=== PATIENT | male | born 1960 | race Caucasian/White ===

== ENCOUNTER 2023-08-06 15:10 | Inpatient (IN) | payer MEDICARE, OTHER ==
[~2023-08-06] VITALS: Ht 215.9 cm; Wt 83.5 kg
[2023-08-06 16:06] LABS: BASOPHILS # (AUTO) 0.2 K/UL (0.0-0.2); EOSINOPHILS # (AUTO) 0.5 K/uL (0.0-0.7); EOSINOPHILS % (AUTO) 7.2 % (0.0-7.0); HEMATOCRIT 36.2 % (36.7-47.1); HEMOGLOBIN 12.3 g/dL (12.5-16.3); LYMPHOCYTES # (AUTO) 1.4 K/uL (0.8-4.8); LYMPHOCYTES % (AUTO) 19.3 % (20.5-51.5); MEAN CORPUSCULAR HEMOGLOBIN 29.9 uug (23.8-33.4); MEAN CORPUSCULAR HGB CONC 34 g/dL (32.5-36.3); MEAN CORPUSCULAR VOLUME 88.2 fL (73.0-96.2); MONOCYTES # (AUTO) 0.6 K/uL (0.1-1.30); MONOCYTES % (AUTO) 7.9 % (0.0-11.0); NEUTROPHILS # (AUTO) 4.5 K/uL (1.8-8.9); NEUTROPHILS % (AUTO) 62.6 % (38.5-71.5); PLATELET COUNT (AUTO) 233 K/uL (152-348); RED BLOOD CELL COUNT(AUTO) 4.11 MIL/uL (4.06-5.63); RED CELL DISTRIBUTION WIDTH 14.1 % (12.1-16.2); WHITE BLOOD COUNT (AUTO) 7.2 K/uL (3.6-10.2)
[2023-08-06 16:07] LABS: DIFFERENTIAL COMMENT 1
[2023-08-06 16:23] LABS: CALCIUM 9.1 mg/dL (8.5-10.1); CARBON DIOXIDE 27 mmol/L (21-32); CHLORIDE 106 mmol/L (98-107); CREATININE 1.2 mg/dL (0.6-1.3); GLUCOSE 122 mg/dL (74-106); POTASSIUM 3.9 mmol/L (3.5-5.1); SODIUM SERUM 139 mmol/L (136-145); UREA NITROGEN, BLOOD 20 mg/dL (7-18)
[2023-08-06 16:31] LABS: ALANINE AMINOTRANSFERASE 11 U/L (16-63); ALBUMIN 3.5 g/dL (3.4-5.0); ALKALINE PHOSPHATASE 59 U/L (50-136); ASPARTATE AMINOTRANSFERASE 5 U/L (15-37); BILIRUBIN,DIRECT 0.1 mg/dL (0.0-0.2); BILIRUBIN,TOTAL 0.3 mg/dL (0.2-1.0); TOTAL PROTEIN, SERUM 6.6 g/dL (6.4-8.2)
[2023-08-06 16:33] LABS: AMMONIA < 10 umol/L (11-32); ETHANOL < 3 MG/DL (0-10)
[2023-08-06 16:36] LABS: THYROID STIMULATING HORMONE 1.259 mIU/mL (0.358-3.740)
[2023-08-06 16:44] LABS: ACETAMINOPHEN < 10.0 ug/mL (10-30)
[2023-08-06 17:10] LABS: *BILIRUBIN,URIN NEGATIVE (NEGATIVE); *BLOOD, URINE TRACE (NEGATIVE); *CLARITY,URINE CLEAR (CLEAR); *COLOR,URINE YELLOW (YELLOW); *KETONES,URINE NEGATIVE (NEGATIVE); *PROTEIN,URINE NEGATIVE (NEGATIVE); *UROBILINOGEN,URINE 0.2 E.U./dl (NORMAL); LEUKOCYTE ESTERASE ,URINE NEGATIVE (NEGATIVE); NITRITE, URINE NEGATIVE (NEGATIVE); UGLUCOSE NEGATIVE (NEGATIVE)
[2023-08-06 17:12] LABS: *AMPHETAMINE, URINE NEGATIVE (NEGATIVE); *BARBITURATE, URINE NEGATIVE (NEGATIVE); *BENZODIAZEPINE, URINE NEGATIVE (NEGATIVE); *CANNABINOID, URINE NEGATIVE (NEGATIVE); *COCCAINE, URINE NEGATIVE (NEGATIVE); *OPIATE, URINE NEGATIVE (NEGATIVE); *PHENCYCLIDINE SCREEN,URINE NEGATIVE (NEGATIVE); FENTANYL, URINE NEGATIVE (NEGATIVE)
[2023-08-06 17:28] LABS: BACTERIA,URINE FEW /HPF (NONE SEEN); RBC,URINE 0-3 /HPF (0-3); SQUAMOUS EPITHELIAL CELL,UR FEW /HPF (NONE SEEN); WBC,URINE NONE SEEN /HPF (0-3)
[2023-08-06] MEDS ORDERED: METF-440 PO (17:54)
[2023-08-06] MEDS ORDERED: MAGN400O6 PO (17:54)
[2023-08-06] MEDS ORDERED: MELA10TA PO (17:54)
[2023-08-06] MEDS ORDERED: MEMA10TA PO (17:54)
[2023-08-06] MEDS ORDERED: OLANZAPINE 10 MG VIAL IM ONE (22:00)
[2023-08-07] MEDS ORDERED: ZOLPIDEM 5 MG TABLET PO PRN (00:15)
[2023-08-07] MEDS ORDERED: BLOOD SUGAR DIAGNOSTIC 1 EACH STRIP VI ONE (00:15)
[2023-08-07 00:58] VITALS: BP 108/65; TEMP 97.7; O2SAT 97
[2023-08-07] MEDS ORDERED: NICOTINE 7 MG/24HR PATCH TD PRN (01:15)
[2023-08-07 07:56] VITALS: BP 130/80; TEMP 97.4; O2SAT 98
[2023-08-07] MEDS: MEMANTINE HCL 5 MG TABLET PO SCH ×2 (08:20→16:34)
[2023-08-07] MEDS: METFORMIN HCL 500 MG TABLET PO SCH ×2 (08:20→17:26)
[2023-08-07] MEDS ORDERED: NICOTINE 21 MG/24HR PATCH TD SCH (09:00)
[2023-08-07] MEDS: QUETIAPINE FUMARATE 25 MG TABLET PO PRN ×2 (09:03→13:31)
[2023-08-07] MEDS: ACETAMINOPHEN 325 MG TABLET PO PRN (16:07)
[2023-08-07 16:13] VITALS: BP 111/57; TEMP 98.2; O2SAT 98
[2023-08-07] MEDS ORDERED: ATOR10TA PO (16:28)
[2023-08-07] MEDS ORDERED: MAG30ORA PO (16:28)
[2023-08-07] MEDS ORDERED: BENA10TA74 PO (16:32)
[2023-08-07] MEDS ORDERED: DOCU240C26 PO (16:39)
[2023-08-07] MEDS ORDERED: GABA-532 PO (16:39)
[2023-08-07] MEDS ORDERED: BUSP10TA3 PO (16:39)
[2023-08-07] MEDS ORDERED: DIVA250T4 PO (16:39)
[2023-08-07] MEDS ORDERED: BISA10SU61 RC (16:39)
[2023-08-07] MEDS ORDERED: NA P133E RC (16:39)
[2023-08-07] MEDS ORDERED: MULT-24 PO (16:42)
[2023-08-07] MEDS ORDERED: OMEG10006 PO (16:43)
[2023-08-07] MEDS ORDERED: QUET25TA PO (16:44)
[2023-08-07] MEDS ORDERED: PSYL822P6 PO (16:47)
[2023-08-07 20:00] VITALS: BP 141/77; TEMP 97.3; O2SAT 96
[2023-08-07] MEDS: OXCARBAZEPINE 150 MG TABLET PO SCH (20:16)
[2023-08-07] MEDS: OLANZAPINE 2.5 MG TABLET PO SCH (20:16)
[2023-08-07] MEDS ORDERED: Medication Not On Formulary EA (Melatonin 5 MG) PO SCH (21:00)
[2023-08-07] MEDS ORDERED: MELATONIN 3 MG TABLET PO SCH (21:00)
[2023-08-08 07:38] LABS: ALBUMIN 3.7 g/dL (3.4-5.0); BILIRUBIN,TOTAL 0.6 mg/dL (0.2-1.0); CALCIUM 8.8 mg/dL (8.5-10.1); CREATININE 1.2 mg/dL (0.6-1.3); POTASSIUM 3.9 mmol/L (3.5-5.1)
[2023-08-08 07:44] VITALS: BP 123/75; TEMP 98; O2SAT 98
[2023-08-08] MEDS: METFORMIN HCL 500 MG TABLET PO SCH ×2 (08:56→17:21)
[2023-08-08] MEDS: OXCARBAZEPINE 150 MG TABLET PO SCH ×3 (08:56→17:21)
[2023-08-08] MEDS: MEMANTINE HCL 5 MG TABLET PO SCH ×2 (08:56→17:21)
[2023-08-08] MEDS: OLANZAPINE 2.5 MG TABLET PO SCH ×2 (08:57→20:42)
[2023-08-08] MEDS: BENAZEPRIL HCL 5 MG TABLET PO SCH (12:00)
[2023-08-08 12:15] VITALS: BP 105/67; O2SAT 99
[2023-08-08] MEDS: GABAPENTIN 300 MG CAPSULE PO SCH ×2 (12:39→17:21)
[2023-08-08 16:29] VITALS: BP 134/63; TEMP 98; O2SAT 98
[2023-08-08] MEDS: OMEGA-3 FATTY ACIDS/FISH OIL CAPSULE PO SCH (17:21)
[2023-08-08 19:56] VITALS: BP 102/58; TEMP 98.2; O2SAT 96
[2023-08-08] MEDS: ATORVASTATIN 10 MG TABLET PO SCH (20:42)
[2023-08-08] MEDS: DOCUSATE SODIUM 250 MG CAPSULE PO SCH (20:42)
[2023-08-09 08:00] VITALS: BP 118/72; TEMP 97.4
[2023-08-09] MEDS: GABAPENTIN 300 MG CAPSULE PO SCH ×3 (09:43→17:48)
[2023-08-09] MEDS: OLANZAPINE 2.5 MG TABLET PO SCH ×2 (09:43→21:12)
[2023-08-09] MEDS: MEMANTINE HCL 5 MG TABLET PO SCH ×2 (09:43→17:48)
[2023-08-09] MEDS: METFORMIN HCL 500 MG TABLET PO SCH ×2 (09:43→17:48)
[2023-08-09] MEDS: MULTIVITAMINS,THERAPEUTIC TABLET PO SCH (09:43)
[2023-08-09] MEDS: OXCARBAZEPINE 150 MG TABLET PO SCH (09:43)
[2023-08-09] MEDS: BENAZEPRIL HCL 5 MG TABLET PO SCH (09:45)
[2023-08-09] MEDS: OMEGA-3 FATTY ACIDS/FISH OIL CAPSULE PO SCH ×2 (11:24→17:48)
[2023-08-09] MEDS: OXCARBAZEPINE 300 MG TABLET PO SCH ×2 (13:29→17:48)
[2023-08-09 14:48] VITALS: BP 118/77; TEMP 97.4; O2SAT 96
[2023-08-09 14:50] VITALS: BP 118/77; TEMP 97.4; O2SAT 96
[2023-08-09] MEDS: busPIRone 5 MG TABLET PO SCH ×2 (14:58→17:48)
[2023-08-09 16:00] VITALS: TEMP 97.8
[2023-08-09] MEDS ORDERED: OXCARBAZEPINE 150 MG TABLET PO SCH (17:00)
[2023-08-09] MEDS: DOCUSATE SODIUM 250 MG CAPSULE PO SCH (21:11)
[2023-08-09] MEDS: ATORVASTATIN 10 MG TABLET PO SCH (21:12)
[2023-08-10 01:06] VITALS: BP 119/52; TEMP 97.5; O2SAT 95
[2023-08-10] MEDS: OLANZAPINE 2.5 MG TABLET PO PRN (06:59)
[2023-08-10 08:00] VITALS: BP 110/72; TEMP 97.4
[2023-08-10] MEDS: OXCARBAZEPINE 300 MG TABLET PO SCH ×3 (08:53→16:05)
[2023-08-10] MEDS: MEMANTINE HCL 5 MG TABLET PO SCH ×2 (08:53→16:04)
[2023-08-10] MEDS: busPIRone 5 MG TABLET PO SCH ×3 (08:53→16:04)
[2023-08-10] MEDS: OMEGA-3 FATTY ACIDS/FISH OIL CAPSULE PO SCH ×2 (08:53→16:04)
[2023-08-10] MEDS: GABAPENTIN 300 MG CAPSULE PO SCH ×3 (08:53→16:04)
[2023-08-10] MEDS: MULTIVITAMINS,THERAPEUTIC TABLET PO SCH (08:53)
[2023-08-10] MEDS: OLANZAPINE 2.5 MG TABLET PO SCH (08:53)
[2023-08-10] MEDS: METFORMIN HCL 500 MG TABLET PO SCH ×2 (08:53→18:03)
[2023-08-10] MEDS: BENAZEPRIL HCL 5 MG TABLET PO SCH (08:59)
[2023-08-10 16:00] VITALS: BP 124/72; TEMP 97.8; O2SAT 98
[2023-08-10] MEDS: DOCUSATE SODIUM 250 MG CAPSULE PO SCH (21:02)
[2023-08-10] MEDS: ATORVASTATIN 10 MG TABLET PO SCH (21:02)
[2023-08-10] MEDS: OLANZAPINE 5 MG TABLET PO SCH (21:02)
[2023-08-10 21:30] VITALS: BP 146/74; TEMP 97.8; O2SAT 98
[2023-08-11] MEDS: OXCARBAZEPINE 300 MG TABLET PO SCH ×3 (08:39→17:31)
[2023-08-11] MEDS: METFORMIN HCL 500 MG TABLET PO SCH ×2 (08:39→17:31)
[2023-08-11] MEDS: MEMANTINE HCL 5 MG TABLET PO SCH ×2 (08:39→17:31)
[2023-08-11] MEDS: GABAPENTIN 300 MG CAPSULE PO SCH ×3 (08:39→17:31)
[2023-08-11] MEDS: MULTIVITAMINS,THERAPEUTIC TABLET PO SCH (08:39)
[2023-08-11] MEDS: busPIRone 5 MG TABLET PO SCH ×3 (08:39→17:31)
[2023-08-11] MEDS: OMEGA-3 FATTY ACIDS/FISH OIL CAPSULE PO SCH ×2 (08:39→17:31)
[2023-08-11] MEDS: BENAZEPRIL HCL 5 MG TABLET PO SCH (08:40)
[2023-08-11] MEDS: OLANZAPINE 5 MG TABLET PO SCH ×2 (08:40→20:24)
[2023-08-11 10:05] VITALS: BP 138/78; TEMP 97.4
[2023-08-11 16:00] VITALS: BP 138/67; TEMP 97.8
[2023-08-11] MEDS: DOCUSATE SODIUM 250 MG CAPSULE PO SCH (20:24)
[2023-08-11] MEDS: ATORVASTATIN 10 MG TABLET PO SCH (20:24)
[2023-08-11 20:30] VITALS: BP 125/72; TEMP 98.2; O2SAT 97
[2023-08-12 08:00] VITALS: BP 145/89; TEMP 98; O2SAT 100
[2023-08-12] MEDS: MEMANTINE HCL 5 MG TABLET PO SCH ×2 (08:26→16:38)
[2023-08-12] MEDS: OMEGA-3 FATTY ACIDS/FISH OIL CAPSULE PO SCH ×2 (08:26→16:39)
[2023-08-12] MEDS: OLANZAPINE 5 MG TABLET PO SCH ×2 (08:26→20:44)
[2023-08-12] MEDS: OXCARBAZEPINE 300 MG TABLET PO SCH ×3 (08:26→16:39)
[2023-08-12] MEDS: MULTIVITAMINS,THERAPEUTIC TABLET PO SCH (08:26)
[2023-08-12] MEDS: busPIRone 5 MG TABLET PO SCH ×3 (08:26→16:38)
[2023-08-12] MEDS: GABAPENTIN 300 MG CAPSULE PO SCH ×3 (08:26→16:38)
[2023-08-12] MEDS: METFORMIN HCL 500 MG TABLET PO SCH ×2 (08:26→17:35)
[2023-08-12] MEDS: BENAZEPRIL HCL 5 MG TABLET PO SCH (08:27)
[2023-08-12 16:00] VITALS: BP 131/75; TEMP 97.4; O2SAT 99
[2023-08-12 20:25] VITALS: BP 110/65; TEMP 98.2; O2SAT 97
[2023-08-12] MEDS: ATORVASTATIN 10 MG TABLET PO SCH (20:44)
[2023-08-12] MEDS: DOCUSATE SODIUM 250 MG CAPSULE PO SCH (20:44)
[2023-08-13] MEDS: OLANZAPINE 2.5 MG TABLET PO PRN (06:42)
[2023-08-13 08:00] VITALS: BP 128/64; TEMP 97; O2SAT 99
[2023-08-13] MEDS: OXCARBAZEPINE 300 MG TABLET PO SCH ×3 (08:41→16:24)
[2023-08-13] MEDS: OLANZAPINE 5 MG TABLET PO SCH ×2 (08:41→21:06)
[2023-08-13] MEDS: MEMANTINE HCL 5 MG TABLET PO SCH ×2 (08:41→16:24)
[2023-08-13] MEDS: METFORMIN HCL 500 MG TABLET PO SCH ×2 (08:41→17:10)
[2023-08-13] MEDS: GABAPENTIN 300 MG CAPSULE PO SCH ×3 (08:41→16:23)
[2023-08-13] MEDS: OMEGA-3 FATTY ACIDS/FISH OIL CAPSULE PO SCH ×2 (08:41→16:24)
[2023-08-13] MEDS: MULTIVITAMINS,THERAPEUTIC TABLET PO SCH (08:41)
[2023-08-13] MEDS: busPIRone 5 MG TABLET PO SCH ×3 (08:42→16:24)
[2023-08-13] MEDS: BENAZEPRIL HCL 5 MG TABLET PO SCH (08:43)
[2023-08-13 16:06] VITALS: BP 128/74; TEMP 97.9; O2SAT 98
[2023-08-13 20:00] VITALS: BP 122/79; TEMP 98.2; O2SAT 98
[2023-08-13] MEDS: ATORVASTATIN 10 MG TABLET PO SCH (20:59)
[2023-08-13] MEDS: DOCUSATE SODIUM 250 MG CAPSULE PO SCH (20:59)
[2023-08-14 09:40] VITALS: BP 134/85; TEMP 97.5; O2SAT 98
[2023-08-14] MEDS: busPIRone 5 MG TABLET PO SCH ×3 (09:58→16:36)
[2023-08-14] MEDS: OXCARBAZEPINE 300 MG TABLET PO SCH ×3 (09:58→16:36)
[2023-08-14] MEDS: OMEGA-3 FATTY ACIDS/FISH OIL CAPSULE PO SCH ×2 (09:59→16:39)
[2023-08-14] MEDS: OLANZAPINE 5 MG TABLET PO SCH ×2 (09:59→20:30)
[2023-08-14] MEDS: METFORMIN HCL 500 MG TABLET PO SCH ×2 (09:59→17:31)
[2023-08-14] MEDS: GABAPENTIN 300 MG CAPSULE PO SCH ×3 (09:59→16:35)
[2023-08-14] MEDS: MEMANTINE HCL 5 MG TABLET PO SCH ×2 (09:59→16:36)
[2023-08-14] MEDS: MULTIVITAMINS,THERAPEUTIC TABLET PO SCH (09:59)
[2023-08-14] MEDS: BENAZEPRIL HCL 5 MG TABLET PO SCH (10:00)
[2023-08-14] MEDS: OLANZAPINE 2.5 MG TABLET PO PRN (12:01)
[2023-08-14 16:01] VITALS: BP 104/70; TEMP 97.8; O2SAT 98
[2023-08-14] MEDS: ACETAMINOPHEN 325 MG TABLET PO PRN (16:16)
[2023-08-14 20:00] VITALS: BP 126/77; TEMP 97.6; O2SAT 97
[2023-08-14] MEDS: DOCUSATE SODIUM 250 MG CAPSULE PO SCH (20:30)
[2023-08-14] MEDS: ATORVASTATIN 10 MG TABLET PO SCH (20:31)
[2023-08-15 07:40] LABS: BASOPHILS % (AUTO) 0.5 % (0.0-2.0); EOSINOPHILS # (AUTO) 0.5 K/uL (0.0-0.7); EOSINOPHILS % (AUTO) 6.6 % (0.0-7.0); HEMATOCRIT 37.8 % (36.7-47.1); HEMOGLOBIN 13.1 g/dL (12.5-16.3); LYMPHOCYTES # (AUTO) 1.3 K/uL (0.8-4.8); LYMPHOCYTES % (AUTO) 17.8 % (20.5-51.5); MEAN CORPUSCULAR HEMOGLOBIN 29.9 uug (23.8-33.4); MEAN CORPUSCULAR HGB CONC 35 g/dL (32.5-36.3); MEAN CORPUSCULAR VOLUME 86.4 fL (73.0-96.2); MONOCYTES # (AUTO) 0.7 K/uL (0.1-1.30); MONOCYTES % (AUTO) 8.8 % (0.0-11.0); NEUTROPHILS % (AUTO) 66.3 % (38.5-71.5); PLATELET COUNT (AUTO) 214 K/uL (152-348); RED BLOOD CELL COUNT(AUTO) 4.38 MIL/uL (4.06-5.63); RED CELL DISTRIBUTION WIDTH 14.2 % (12.1-16.2); WHITE BLOOD COUNT (AUTO) 7.5 K/uL (3.6-10.2)
[2023-08-15 07:41] LABS: DIFFERENTIAL COMMENT 1
[2023-08-15 07:50] VITALS: BP 129/82; TEMP 97.9; O2SAT 98
[2023-08-15 07:54] LABS: CALCIUM 8.9 mg/dL (8.5-10.1); MAGNESIUM 1.9 mg/dL (1.8-2.4); POTASSIUM 4.2 mmol/L (3.5-5.1)
[2023-08-15] MEDS: busPIRone 5 MG TABLET PO SCH ×3 (08:22→16:11)
[2023-08-15] MEDS: METFORMIN HCL 500 MG TABLET PO SCH ×2 (08:22→17:04)
[2023-08-15] MEDS: GABAPENTIN 300 MG CAPSULE PO SCH ×2 (08:22→12:08)
[2023-08-15] MEDS: OXCARBAZEPINE 300 MG TABLET PO SCH ×3 (08:22→16:11)
[2023-08-15] MEDS: MEMANTINE HCL 5 MG TABLET PO SCH ×2 (08:23→16:10)
[2023-08-15] MEDS: OMEGA-3 FATTY ACIDS/FISH OIL CAPSULE PO SCH ×2 (08:23→16:10)
[2023-08-15] MEDS: MULTIVITAMINS,THERAPEUTIC TABLET PO SCH (08:23)
[2023-08-15] MEDS: OLANZAPINE 5 MG TABLET PO SCH ×2 (08:23→21:05)
[2023-08-15] MEDS: BENAZEPRIL HCL 5 MG TABLET PO SCH (08:25)
[2023-08-15] MEDS: OLANZAPINE 2.5 MG TABLET PO PRN (16:10)
[2023-08-15 16:12] VITALS: BP 94/68; TEMP 98; O2SAT 98
[2023-08-15 20:00] VITALS: BP 140/84; TEMP 97.4; O2SAT 98
[2023-08-15] MEDS: DOCUSATE SODIUM 250 MG CAPSULE PO SCH (21:05)
[2023-08-15] MEDS: ATORVASTATIN 10 MG TABLET PO SCH (21:05)
[2023-08-16 07:47] VITALS: BP 118/69; TEMP 97.9; O2SAT 98
[2023-08-16] MEDS: OXCARBAZEPINE 300 MG TABLET PO SCH ×3 (08:11→16:57)
[2023-08-16] MEDS: OMEGA-3 FATTY ACIDS/FISH OIL CAPSULE PO SCH ×2 (08:11→16:57)
[2023-08-16] MEDS: MULTIVITAMINS,THERAPEUTIC TABLET PO SCH (08:12)
[2023-08-16] MEDS: OLANZAPINE 5 MG TABLET PO SCH ×2 (08:12→20:10)
[2023-08-16] MEDS: MEMANTINE HCL 5 MG TABLET PO SCH ×2 (08:12→16:57)
[2023-08-16] MEDS: busPIRone 5 MG TABLET PO SCH (08:12)
[2023-08-16] MEDS: METFORMIN HCL 500 MG TABLET PO SCH ×2 (08:12→17:03)
[2023-08-16] MEDS: BENAZEPRIL HCL 5 MG TABLET PO SCH (08:19)
[2023-08-16] MEDS: busPIRone 10 MG TABLET PO SCH ×2 (12:14→16:57)
[2023-08-16 12:39] LABS: CALCIUM 9.6 mg/dL (8.5-10.1); CREATININE 1.1 mg/dL (0.6-1.3); POTASSIUM 4.5 mmol/L (3.5-5.1)
[2023-08-16] MEDS ORDERED: busPIRone 5 MG TABLET PO SCH (13:00)
[2023-08-16] MEDS: OLANZAPINE 2.5 MG TABLET PO PRN (15:01)
[2023-08-16] MEDS: ACETAMINOPHEN 325 MG TABLET PO PRN (15:01)
[2023-08-16 17:14] VITALS: BP 116/75; TEMP 98.3; O2SAT 97
[2023-08-16 20:00] VITALS: BP 114/60; TEMP 98; O2SAT 97
[2023-08-16] MEDS: ATORVASTATIN 10 MG TABLET PO SCH (20:09)
[2023-08-16] MEDS: DOCUSATE SODIUM 250 MG CAPSULE PO SCH (20:09)
[2023-08-17 07:55] VITALS: BP 123/73; TEMP 97.8; O2SAT 99
[2023-08-17] MEDS: MEMANTINE HCL 5 MG TABLET PO SCH ×2 (08:09→16:13)
[2023-08-17] MEDS: METFORMIN HCL 500 MG TABLET PO SCH ×2 (08:09→18:06)
[2023-08-17] MEDS: OMEGA-3 FATTY ACIDS/FISH OIL CAPSULE PO SCH ×2 (08:09→16:13)
[2023-08-17] MEDS: MULTIVITAMINS,THERAPEUTIC TABLET PO SCH (08:09)
[2023-08-17] MEDS: OLANZAPINE 5 MG TABLET PO SCH ×2 (08:09→21:22)
[2023-08-17] MEDS: busPIRone 10 MG TABLET PO SCH ×3 (08:09→16:13)
[2023-08-17] MEDS: BENAZEPRIL HCL 5 MG TABLET PO SCH (08:10)
[2023-08-17] MEDS: OXCARBAZEPINE 300 MG TABLET PO SCH ×3 (08:10→16:14)
[2023-08-17 08:56] LABS: CALCIUM 8.6 mg/dL (8.5-10.1); POTASSIUM 4.2 mmol/L (3.5-5.1)
[2023-08-17] MEDS: OLANZAPINE 2.5 MG TABLET PO PRN (13:04)
[2023-08-17] MEDS: SODIUM CHLORIDE 1,000 MG TABLET PO SCH ×2 (13:43→16:13)
[2023-08-17 15:10] VITALS: BP 146/76; TEMP 98; O2SAT 99
[2023-08-17 20:00] VITALS: BP 125/75; TEMP 97.8; O2SAT 97
[2023-08-17] MEDS: ATORVASTATIN 10 MG TABLET PO SCH (21:22)
[2023-08-17] MEDS: DOCUSATE SODIUM 250 MG CAPSULE PO SCH (21:22)
[2023-08-18] MEDS: OLANZAPINE 2.5 MG TABLET PO PRN (07:05)
[2023-08-18 08:07] VITALS: BP 128/77; TEMP 98; O2SAT 98
[2023-08-18 08:13] LABS: BASOPHILS % (AUTO) 0.4 % (0.0-2.0); EOSINOPHILS # (AUTO) 0.5 K/uL (0.0-0.7); EOSINOPHILS % (AUTO) 9.9 % (0.0-7.0); HEMATOCRIT 37.5 % (36.7-47.1); HEMOGLOBIN 12.9 g/dL (12.5-16.3); LYMPHOCYTES # (AUTO) 1.2 K/uL (0.8-4.8); LYMPHOCYTES % (AUTO) 21.5 % (20.5-51.5); MEAN CORPUSCULAR HEMOGLOBIN 29.7 uug (23.8-33.4); MEAN CORPUSCULAR HGB CONC 34 g/dL (32.5-36.3); MEAN CORPUSCULAR VOLUME 86.3 fL (73.0-96.2); MONOCYTES # (AUTO) 0.7 K/uL (0.1-1.30); NEUTROPHILS # (AUTO) 2.9 K/uL (1.8-8.9); NEUTROPHILS % (AUTO) 54.2 % (38.5-71.5); PLATELET COUNT (AUTO) 211 K/uL (152-348); RED BLOOD CELL COUNT(AUTO) 4.35 MIL/uL (4.06-5.63); RED CELL DISTRIBUTION WIDTH 14.3 % (12.1-16.2); WHITE BLOOD COUNT (AUTO) 5.4 K/uL (3.6-10.2)
[2023-08-18 08:24] LABS: DIFFERENTIAL COMMENT 1
[2023-08-18] MEDS: OXCARBAZEPINE 300 MG TABLET PO SCH ×2 (08:37→12:55)
[2023-08-18] MEDS: OMEGA-3 FATTY ACIDS/FISH OIL CAPSULE PO SCH ×2 (08:37→17:36)
[2023-08-18] MEDS: MEMANTINE HCL 5 MG TABLET PO SCH ×2 (08:37→17:36)
[2023-08-18] MEDS: busPIRone 10 MG TABLET PO SCH ×3 (08:37→17:36)
[2023-08-18] MEDS: SODIUM CHLORIDE 1,000 MG TABLET PO SCH ×2 (08:37→17:36)
[2023-08-18] MEDS: MULTIVITAMINS,THERAPEUTIC TABLET PO SCH (08:37)
[2023-08-18] MEDS: METFORMIN HCL 500 MG TABLET PO SCH ×2 (08:38→17:36)
[2023-08-18] MEDS: OLANZAPINE 5 MG TABLET PO SCH ×2 (08:38→20:53)
[2023-08-18] MEDS: BENAZEPRIL HCL 5 MG TABLET PO SCH (08:39)
[2023-08-18 08:40] LABS: CALCIUM 9.1 mg/dL (8.5-10.1); MAGNESIUM 1.9 mg/dL (1.8-2.4); PHOSPHOROUS 2.9 mg/dL (2.5-4.9); POTASSIUM 4.2 mmol/L (3.5-5.1)
[2023-08-18 15:10] VITALS: BP 100/60; TEMP 98; O2SAT 98
[2023-08-18] MEDS ORDERED: OXCARBAZEPINE 300 MG TABLET PO SCH (17:00)
[2023-08-18] MEDS: OXCARBAZEPINE 150 MG TABLET PO SCH (17:36)
[2023-08-18 20:00] VITALS: BP 132/87; TEMP 97.5; O2SAT 96
[2023-08-18] MEDS: ATORVASTATIN 10 MG TABLET PO SCH (20:53)
[2023-08-18] MEDS: DOCUSATE SODIUM 250 MG CAPSULE PO SCH (20:53)
[2023-08-19 07:55] VITALS: BP 112/56; TEMP 98.2; O2SAT 98
[2023-08-19] MEDS: MEMANTINE HCL 5 MG TABLET PO SCH ×2 (08:41→16:45)
[2023-08-19] MEDS: OLANZAPINE 5 MG TABLET PO SCH ×2 (08:41→20:06)
[2023-08-19] MEDS: busPIRone 10 MG TABLET PO SCH ×3 (08:41→16:45)
[2023-08-19] MEDS: SODIUM CHLORIDE 1,000 MG TABLET PO SCH ×2 (08:42→16:45)
[2023-08-19] MEDS: MULTIVITAMINS,THERAPEUTIC TABLET PO SCH (08:42)
[2023-08-19] MEDS: OMEGA-3 FATTY ACIDS/FISH OIL CAPSULE PO SCH ×2 (08:42→16:45)
[2023-08-19] MEDS: BENAZEPRIL HCL 5 MG TABLET PO SCH (08:42)
[2023-08-19] MEDS: OXCARBAZEPINE 150 MG TABLET PO SCH ×3 (08:42→16:45)
[2023-08-19] MEDS: METFORMIN HCL 500 MG TABLET PO SCH ×2 (08:43→16:45)
[2023-08-19] MEDS: OLANZAPINE 2.5 MG TABLET PO PRN (12:10)
[2023-08-19 15:25] VITALS: BP 107/51; TEMP 98; O2SAT 100
[2023-08-19 20:00] VITALS: BP 145/75; TEMP 97.2; O2SAT 96
[2023-08-19] MEDS: ATORVASTATIN 10 MG TABLET PO SCH (20:06)
[2023-08-19] MEDS: DOCUSATE SODIUM 250 MG CAPSULE PO SCH (20:06)
[2023-08-20 07:59] VITALS: BP 124/71; TEMP 98.2; O2SAT 98
[2023-08-20 08:38] LABS: BASOPHILS % (AUTO) 0.5 % (0.0-2.0); EOSINOPHILS # (AUTO) 0.7 K/uL (0.0-0.7); EOSINOPHILS % (AUTO) 12.6 % (0.0-7.0); HEMATOCRIT 38.1 % (36.7-47.1); HEMOGLOBIN 12.9 g/dL (12.5-16.3); LYMPHOCYTES # (AUTO) 1.3 K/uL (0.8-4.8); LYMPHOCYTES % (AUTO) 23.9 % (20.5-51.5); MEAN CORPUSCULAR HEMOGLOBIN 29.6 uug (23.8-33.4); MEAN CORPUSCULAR HGB CONC 34 g/dL (32.5-36.3); MEAN CORPUSCULAR VOLUME 87.3 fL (73.0-96.2); MONOCYTES # (AUTO) 0.6 K/uL (0.1-1.30); MONOCYTES % (AUTO) 11.5 % (0.0-11.0); NEUTROPHILS # (AUTO) 2.9 K/uL (1.8-8.9); NEUTROPHILS % (AUTO) 51.5 % (38.5-71.5); PLATELET COUNT (AUTO) 201 K/uL (152-348); RED BLOOD CELL COUNT(AUTO) 4.36 MIL/uL (4.06-5.63); RED CELL DISTRIBUTION WIDTH 14.3 % (12.1-16.2); WHITE BLOOD COUNT (AUTO) 5.6 K/uL (3.6-10.2)
[2023-08-20 08:48] LABS: CALCIUM 9.3 mg/dL (8.5-10.1); CREATININE 1.1 mg/dL (0.6-1.3); MAGNESIUM 2.1 mg/dL (1.8-2.4); POTASSIUM 4.5 mmol/L (3.5-5.1)
[2023-08-20 08:51] LABS: DIFFERENTIAL COMMENT 1
[2023-08-20] MEDS: METFORMIN HCL 500 MG TABLET PO SCH ×2 (08:59→17:34)
[2023-08-20] MEDS: MEMANTINE HCL 5 MG TABLET PO SCH ×2 (08:59→16:22)
[2023-08-20] MEDS: MULTIVITAMINS,THERAPEUTIC TABLET PO SCH (08:59)
[2023-08-20] MEDS: OXCARBAZEPINE 150 MG TABLET PO SCH ×3 (08:59→16:22)
[2023-08-20] MEDS: SODIUM CHLORIDE 1,000 MG TABLET PO SCH ×2 (09:00→16:22)
[2023-08-20] MEDS: busPIRone 10 MG TABLET PO SCH ×3 (09:00→16:22)
[2023-08-20] MEDS: OLANZAPINE 5 MG TABLET PO SCH ×2 (09:00→21:00)
[2023-08-20] MEDS: BENAZEPRIL HCL 5 MG TABLET PO SCH (09:00)
[2023-08-20] MEDS: OMEGA-3 FATTY ACIDS/FISH OIL CAPSULE PO SCH ×2 (09:01→16:22)
[2023-08-20 16:00] VITALS: BP 100/67; TEMP 98; O2SAT 98
[2023-08-20 19:45] VITALS: BP 96/63; TEMP 98.5; O2SAT 96
[2023-08-20] MEDS: DOCUSATE SODIUM 250 MG CAPSULE PO SCH (21:00)
[2023-08-20] MEDS: ATORVASTATIN 10 MG TABLET PO SCH (21:00)
[2023-08-21 03:41] VITALS: BP 119/60
[2023-08-21 07:52] LABS: CREATININE 1.1 mg/dL (0.6-1.3); POTASSIUM 4.4 mmol/L (3.5-5.1)
[2023-08-21 07:57] VITALS: BP 123/79; TEMP 98.1; O2SAT 98
[2023-08-21] MEDS: OXCARBAZEPINE 150 MG TABLET PO SCH ×3 (08:30→17:23)
[2023-08-21] MEDS: SODIUM CHLORIDE 1,000 MG TABLET PO SCH ×2 (08:30→17:24)
[2023-08-21] MEDS: METFORMIN HCL 500 MG TABLET PO SCH ×2 (08:30→17:23)
[2023-08-21] MEDS: OLANZAPINE 5 MG TABLET PO SCH ×2 (08:31→20:35)
[2023-08-21] MEDS: OMEGA-3 FATTY ACIDS/FISH OIL CAPSULE PO SCH ×2 (08:31→17:23)
[2023-08-21] MEDS: busPIRone 10 MG TABLET PO SCH ×3 (08:31→17:23)
[2023-08-21] MEDS: MEMANTINE HCL 5 MG TABLET PO SCH ×2 (08:31→17:23)
[2023-08-21] MEDS: MULTIVITAMINS,THERAPEUTIC TABLET PO SCH (08:32)
[2023-08-21] MEDS: BENAZEPRIL HCL 5 MG TABLET PO SCH (08:56)
[2023-08-21 16:25] VITALS: BP 124/72; TEMP 98; O2SAT 98
[2023-08-21 20:05] VITALS: BP 122/79; TEMP 97.9
[2023-08-21] MEDS: ATORVASTATIN 10 MG TABLET PO SCH (20:35)
[2023-08-21] MEDS: DOCUSATE SODIUM 250 MG CAPSULE PO SCH (20:35)
[2023-08-22 08:03] LABS: CALCIUM 9.3 mg/dL (8.5-10.1); CREATININE 1.1 mg/dL (0.6-1.3); POTASSIUM 4.3 mmol/L (3.5-5.1)
[2023-08-22 08:24] VITALS: BP 108/77; TEMP 98.2; O2SAT 98
[2023-08-22] MEDS: OLANZAPINE 5 MG TABLET PO SCH ×2 (08:45→21:37)
[2023-08-22] MEDS: OMEGA-3 FATTY ACIDS/FISH OIL CAPSULE PO SCH ×2 (08:45→17:50)
[2023-08-22] MEDS: METFORMIN HCL 500 MG TABLET PO SCH ×2 (08:45→17:50)
[2023-08-22] MEDS: OXCARBAZEPINE 150 MG TABLET PO SCH ×3 (08:46→17:49)
[2023-08-22] MEDS: SODIUM CHLORIDE 1,000 MG TABLET PO SCH ×2 (08:46→17:51)
[2023-08-22] MEDS: MULTIVITAMINS,THERAPEUTIC TABLET PO SCH (08:46)
[2023-08-22] MEDS: MEMANTINE HCL 5 MG TABLET PO SCH ×2 (08:46→17:49)
[2023-08-22] MEDS: busPIRone 10 MG TABLET PO SCH ×3 (08:46→17:50)
[2023-08-22] MEDS: BENAZEPRIL HCL 5 MG TABLET PO SCH (08:48)
[2023-08-22 16:52] VITALS: BP 116/83; TEMP 98; O2SAT 98
[2023-08-22 20:00] VITALS: BP 117/74; TEMP 98.1; O2SAT 98
[2023-08-22] MEDS: DOCUSATE SODIUM 250 MG CAPSULE PO SCH (21:37)
[2023-08-22] MEDS: ATORVASTATIN 10 MG TABLET PO SCH (21:37)
[2023-08-23 07:59] VITALS: BP 126/79; TEMP 98.1; O2SAT 98
[2023-08-23] MEDS: OXCARBAZEPINE 150 MG TABLET PO SCH ×2 (09:05→11:48)
[2023-08-23] MEDS: OMEGA-3 FATTY ACIDS/FISH OIL CAPSULE PO SCH (09:05)
[2023-08-23] MEDS: SODIUM CHLORIDE 1,000 MG TABLET PO SCH (09:05)
[2023-08-23] MEDS: MULTIVITAMINS,THERAPEUTIC TABLET PO SCH (09:06)
[2023-08-23] MEDS: OLANZAPINE 5 MG TABLET PO SCH (09:06)
[2023-08-23] MEDS: busPIRone 10 MG TABLET PO SCH ×2 (09:06→11:48)
[2023-08-23] MEDS: MEMANTINE HCL 5 MG TABLET PO SCH (09:06)
[2023-08-23 09:09] VITALS: BP 126/79
[2023-08-23] MEDS: BENAZEPRIL HCL 5 MG TABLET PO SCH (09:09)
[2023-08-23] MEDS: METFORMIN HCL 500 MG TABLET PO SCH (09:13)
== END 2023-08-23 12:00 | DRG 885 ==
LOC: ER 15:10 → GPS 23:10
PROVIDERS: ADMIT Psychiatry & Neurology Psychiatry; ATTEND Internal Medicine
DX: F31.9 Bipolar disorder, unspecified (principal); F03.911 Unspecified dementia, unspecified severity, with agitation; E87.1 Hypo-osmolality and hyponatremia; F03.94 Unspecified dementia, unspecified severity, with anxiety; I07.1 Rheumatic tricuspid insufficiency; Z79.84 Long term (current) use of oral hypoglycemic drugs; Z86.16 Personal history of COVID-19; Z86.718 Personal history of other venous thrombosis and embolism; T42.1X5A Adverse effect of iminostilbenes, initial encounter; Y92.239 Unspecified place in hospital as the place of occurrence of the external cause; I10 Essential (primary) hypertension; Z79.899 Other long term (current) drug therapy; Z87.891 Personal history of nicotine dependence; Z91.81 History of falling; E78.5 Hyperlipidemia, unspecified; E11.9 Type 2 diabetes mellitus without complications
CPT/HCPCS: 36415; 70450; 71045; 83735; 84100; 84443; 84484; 85025; 85730; 93005; G0480; J2358